=== PATIENT | female | born 1975 | race Caucasian/White ===

== ENCOUNTER → 2024-01-09 10:24 | Outpatient (REF) | payer OTHER, SELFPAY | LOC: RAD 10:24 | PROVIDERS: ATTENDING PHYSICIAN Nurse Practitioner Adult Health | DX: K59.04 Chronic idiopathic constipation (principal) | CPT/HCPCS: 74018 ==

== ENCOUNTER → 2024-04-02 06:14 | Day surgery (SDC) | payer OTHER, SELFPAY | LOC: GI 06:14 | PROVIDERS: ATTENDING PHYSICIAN Surgery | DX: Z12.11 Encounter for screening for malignant neoplasm of colon (principal) | CPT/HCPCS: G0121 ==

== ENCOUNTER 2024-05-12 17:55 | Emergency (ER) | payer OTHER, SELFPAY ==
[2024-05-12 17:57] VITALS: BP 127/94
--- NOTE | 2024-05-12 20:25 | ED.GENMED ---
History of Present Illness
General
Chief Complaint: Dizziness
Source: patient
Exam Limitations: none
Time Seen by Provider: 05/12/24 20:06
History of Present Illness
History of Present Illness:
See MDM
Past History
Past History
ED Past Medical History: None
ED Past Surgical History: None
Social History
Tobacco: Non-smoker
Phy Exam
Physical Exam
Physical Exam:
See MDM
Course
Orders/Labs/Results
Orders:
Orders
05/12/24 18:[address] [CT Head W/o Iv Contrast] Urgent
Comment:
Reason For Exam: dizziness
05/12/24 19:22
Test Result ONCE
05/12/24 20:19
Meclizine [Antivert] 25 mg PO NOW STA
05/12/24 20:26
Complete Blood Count/With Diff Urgent
Comprehensive Metabolic Panel Urgent
HCG, Serum Qualitative Screen Urgent
Abnormal Lab Results
05/12/24
20:26
Hct 36.9 L %
(37.0-47.0)
MCV 80.7 L fL
(81.0-99.0)
BUN 23 H mg/dl
(7-17)
05/12/24 20:26
05/12/24 20:26
Vital Signs
Initial and Last Documented VS:
Initial Vital Signs
Temp Pulse Resp BP Pulse Ox
98.2 F 89 18 127/94 97
05/12/24 17:57 05/12/24 17:57 05/12/24 17:57 05/12/24 17:57 05/12/24 17:57
Last Documented Vital Signs
Temp Pulse Resp BP Pulse Ox
98.2 F 78 18 116/86 97
05/12/24 17:57 05/12/24 20:39 05/12/24 17:57 05/12/24 20:39 05/12/24 20:39
MDM/Problems Addressed
Differential Diagnosis Includes:
HPI and MDM Narrative:
48-year-old female presenting with intermittent dizziness over the past several weeks or so. Patient saw her PCP and felt like the symptoms were dismissed. Given her prior history of breast cancer, she went to her oncologist who suggested ER
evaluation for brain imaging to rule out any sort of mass or metastatic disease. Patient states symptoms are intermittent and worse with certain head movements.
On exam, she is well-appearing nontoxic. We discussed the CT head is negative for any sort of mass or metastasis. She does have normal finger-nose bilaterally and a mild left lateral nystagmus that is easily fatigable. Positive Tory-Hallpike to
the left. Will obtain basic blood work but treat as likely benign paroxysmal positional vertigo and start meclizine
Physical exam
General: Well appearing and non-toxic
HEENT: protecting airway. TMs clear. Mild fatigable horizontal nystagmus to the left
Neck: supple
CV: No evidence of cyanosis
Resp: No accessory muscle use
Abd: Non-distended
Extremities: No deformities
Neuro: alert. Normal finger-nose bilaterally. Positive Tory-Hallpike to the left
Psych: Normal affect
Skin: Intact
Problems Addressed including Acute and Chronic Conditions affecting care:
1. Benign paroxysmal positional vertigo
Acuity: acute
Prognosis: stable
Details: CT head negative. Will start meclizine and reeval
Updates
Blood work without clinical significance. Patient feeling better after meclizine. We discussed Prakash maneuvers at home and possible vestibular therapy. We discussed outpatient MRI if symptoms persist. Since patient was feeling better, she did
mention that she was eager to leave to provide her dog with epileptic medicine. Patient was given verbal discharge information. She did not need to wait for written instructions. Patient ambulate without difficulty.
Differential Diagnosis (but not limited to): Brain metastasis, vertigo, BPPV
Testing considered: Brain MRI but discussed this is likely better suited in the outpatient setting if symptoms persist
Drug therapy (if applicable): OTC meds, please see d/c instruction regarding Rx drugs
Amount and/or Complexity of Data Reviewed
Clinical info obtained from: Patient
External data reviewed: N/A
Labs I independently reviewed (but not limited to): White blood cell count normal
Radiology: The CT scan was personally and independently reviewed. In addition, official CT report reviewed.
Pulse Ox: not hypoxic
EKG independently reviewed: N/A
Athletic Gear Custodian: N/A
Critical Care: N/A
Risk of Complication:
Social Determinants of health: Good social support
Discussed with other providers: N/A
Escalation of Care includes Admit/Obs: After being observed in the Emergency Department, pt stable for discharge.
Occasional wrong word or 'sound a like' substitutions may have occurred due to the inherent limitations of voice recognition software. Read the chart carefully and recognize, using context, where substitutions have occurred.
*Critical Care Note
Total Time (30-74mins, 75-104mins- exclusive of procedures): Not Applicable
ED Attending Note
-
Portions of this chart may have been created with voice recognition software.� Occasional wrong word or��sound alike� substitutions may have occurred due to the inherent limitations of voice recognition software.
Discharge Plan
Departure
Patient Disposition: Home (Routine Discharge)
Date of Disposition: 05/12/24
Time of Disposition: 21:39
Patient with high blood pressure during this ER visit?: No
Discharge Problem:
Benign paroxysmal positional vertigo
Instructions: Vertigo (a Type of Dizziness) (DC)
Prescriptions:
New
meclizine [Antivert] 25 mg Tablet,Chewable
25 mg PO BIDPRN PRN (Reason: nausea or vertigo) Qty: 15 0RF
No Action
multivitamin [Zqr-Qwmxhh-Oronp] 1 EACH tablet
1 ea PO DAILY
hydromorphone 2 MG tablet
2 mg PO Q4-6HPRN PRN (Reason: pain)
naproxen sodium [Aleve] 220 MG tablet
220 mg PO BID
diazepam 5 MG tablet
5 mg PO DAILYPRN PRN (Reason: spasms)
Paxlovid 300 mg (150 mg x 2)-100 mg tablets,dose pack
See Rx Instructions .ROUTE .COMPLEX Qty: 30 0RF
Rx Instructions:
take TWO 150 mg tablets of nirmatrelvir with ONE 100 mg tablet of ritonavir twice daily for 5 days
Referrals:
Tonja Pinzon CRNP [Family Provider] -
Interventions
Interventions:
*Risk Screen - Suicide Last Done: 05/12/24 17:57
*General Assessment Last Done: 05/12/24 17:57
*Neglect/Abuse Screening Last Done: 05/12/24 17:57
*ED COVID-19 Vaccine History Last Done: 05/12/24 17:57
Discharge Date and Time
Print Language: ALBANIAN
[2024-05-12] MEDS: ANTIVERT 25 MG PO (20:37)
[2024-05-12 20:39] VITALS: BP 116/86
[2024-05-12 20:42] LABS: % Basophils 0.3 % (0-2); % Eosinophils 2.2 % (0-6); % Immature Granulocytes 0.1 % (0-0.5); % Lymphocytes 38.2 % (20.5-51.1); % Monocytes 5.3 % (1.7-9.3); % Neutrophils 53.9 % (42.2-75.2); Absolute Eosinophils 0.2 10^3/uL (0-0.7); Absolute Lymphocytes 2.7 10^3/uL (1.2-3.4); Absolute Monocytes 0.4 10^3/uL (0.1-0.6); Absolute Neutrophils 3.8 10^3/uL (1.4-6.5); Hematocrit 36.9 % (37.0-47.0); Hemoglobin 13.1 g/dL (12.0-16.0); Mean Corp Hgb Conc. 35.5 g/dL (33.0-37.0); Mean Corpuscular Hgb 28.7 pg (27.0-31.0); Mean Corpuscular Volume 80.7 fL (81.0-99.0); Mean Platelet Volume 9.9 fL (7.4-10.4); Nucleated Red Blood Cells % 0 %; Platelet Count 293 10^3/uL (130-400); Red Blood Cell Count 4.57 10^6/uL (4.20-5.40); Red Cell Dist. Width 13.3 % (11.5-14.5)
[2024-05-12 20:58] LABS: HCG, Serum Qualitative Screen Negative
[2024-05-12 21:02] LABS: ALT (SGPT) 17 U/L (0-35); AST (SGOT) 27 U/L (14-36); Albumin 4.5 g/dl (3.5-5.0); Alkaline Phosphatase 48 U/L (38-126); Blood Urea Nitrogen 23 mg/dl (7-17); Calcium 10.1 mg/dl (8.4-10.2); Carbon Dioxide 27 mmol/L (22-30); Chloride 102 mmol/L (98-107); Glucose 81 mg/dl (70-99); Sodium 136 mmol/L (135-145); Total Bilirubin 0.4 mg/dl (0.2-1.3); Total Protein 6.9 g/dl (6.3-8.2); eGFR > 60.00
== END 2024-05-12 21:50 | disposition home or self-care (01) ==
LOC: EMR 17:55
PROVIDERS: Emergency Medicine; EMERGENCY PHYSICIAN Student in an Organized Health Care Education/Training Program; FAMILY PHYSICIAN Nurse Practitioner Adult Health
DX: H81.10 Benign paroxysmal vertigo, unspecified ear (principal); Z85.3 Personal history of malignant neoplasm of breast; Z88.1 Allergy status to other antibiotic agents
CPT/HCPCS: 99284; 70450; 80053; 84703; 85025

== ENCOUNTER 2024-11-17 14:41 | Emergency (ER) | payer OTHER, SELFPAY ==
[2024-11-17 15:06] VITALS: BP 106/77
[2024-11-17 15:40] LABS: % Basophils 0.4 % (0-2); % Eosinophils 2.5 % (0-6); % Immature Granulocytes 0.3 % (0-0.5); % Lymphocytes 34.4 % (20.5-51.1); % Monocytes 5.3 % (1.7-9.3); % Neutrophils 57.1 % (42.2-75.2); Absolute Eosinophils 0.2 10^3/uL (0-0.7); Absolute Lymphocytes 2.5 10^3/uL (1.2-3.4); Absolute Monocytes 0.4 10^3/uL (0.1-0.6); Absolute Neutrophils 4.1 10^3/uL (1.4-6.5); Hematocrit 40.4 % (37.0-47.0); Hemoglobin 13.8 g/dL (12.0-16.0); Mean Corp Hgb Conc. 34.2 g/dL (33.0-37.0); Mean Corpuscular Hgb 28.8 pg (27.0-31.0); Mean Corpuscular Volume 84.3 fL (81.0-99.0); Mean Platelet Volume 9.8 fL (7.4-10.4); Nucleated Red Blood Cells % 0 %; Platelet Count 317 10^3/uL (130-400); Red Blood Cell Count 4.79 10^6/uL (4.20-5.40); Red Cell Dist. Width 13.2 % (11.5-14.5); White Blood Cell Count 7.2 10^3/uL (4.8-10.8)
[2024-11-17 15:53] LABS: ALT (SGPT) 13 U/L (0-35); AST (SGOT) 19 U/L (14-36); Albumin 4.7 g/dl (3.5-5.0); Alkaline Phosphatase 56 U/L (38-126); Blood Urea Nitrogen 13 mg/dl (7-17); Calcium 9.7 mg/dl (8.4-10.2); Carbon Dioxide 23 mmol/L (22-30); Chloride 102 mmol/L (98-107); Glucose 87 mg/dl (70-99); Potassium 4.2 mmol/L (3.5-5.1); Sodium 135 mmol/L (135-145); Total Bilirubin 0.7 mg/dl (0.2-1.3); eGFR > 60.00
[2024-11-17 16:04] LABS: Troponin I < 0.012 ng/ml
--- NOTE | 2024-11-17 16:06 | ED.GENMED ---
History of Present Illness
General
Chief Complaint: Breathing Problem
Time Seen by Provider: 11/17/24 16:06
History of Present Illness
History of Present Illness:
TIME OF INITIAL ENCOUNTER:
HPI: The patient presents with shortness of breath. This is associated with some upper back pain in the middle. She does not necessarily have an exertional component. 2 nights ago, while with friends at [facility], she had abrupt onset lower
chest/upper abdominal tightness. She did not drink any alcohol this past weekend. She does not normally drink any alcohol. She has a history of breast cancer and no longer requires any treatment.
EXAM:
GENERAL: Well appearing in no distress
HEENT: Moist oral mucosa
CARDIOVASCULAR: No murmurs, normal heart rate, regular rhythm, No chest wall tenderness
PULMONARY: No respiratory distress, breath sounds are clear and equal
ABDOMEN: Soft with no peritoneal signs, no tenderness
BACK: Minimal near midline T-spine tenderness
NEUROLOGIC: Excellent strength all extremities, no coordination deficits
PSYCHIATRIC: Appropriate mental status, normal insight and judgement
EXTREMITIES: Nontender, no edema, moves all extremities equally
SKIN: No rash, no lesions
NUMBER AND COMPLEXITY OF PROBLEMS ADDRESSED AT THE ENCOUNTER
� Chronic conditions affecting care: Breast cancer
� Acute Exacerbation and/or Progression of Chronic Illness:
� Differential Diagnosis includes: Anxiety, no evidence for reactive airway disease, recurrence of malignancy, PE, ACS
AMOUNT AND/OR COMPLEXITY OF DATA TO BE REVIEWED AND ANALYZED
� I performed an independent evaluation of and my interpretation is:
EKG: Sinus 80, normal axis, no acute ST abnormality
CT: CT chest shows no PE, atelectasis noted
X-rays:
Laboratory Studies: CBC and chemistries unremarkable, troponin negative, TSH normal
Other:
� Review of other/old records: The patient was seen here last May related to vertigo
� Clinical information was obtained by an independent historian: None needed
� Prescriptions/Medications Considered but not given:
� Further testing considered but not performed:
RISK OF COMPLICATIONS AND/OR MORBIDITY OR MORTALITY OF PATIENT MANAGEMENT
� Social determinants of health affecting care: Lives at home
� Discussion with other providers:
� Escalation of care including admission/observation vs risk of discharge considered: The patient has a history of breast cancer no longer requiring any treatment. However she has otherwise unexplained shortness of breath. Will
obtain CT imaging for further evaluation.
ANY OTHER UPDATES:
8:30 PM: Patient has an unremarkable ED workup. Appears comfortable. Possible anxiety component. We talked about the bilateral atelectasis and gave an incentive spirometer however I doubt that this is the cause of her symptoms..
Past History
Past History
ED Past Medical History: None
ED Past Surgical History: None
Social History
Tobacco: Non-smoker
Phy Exam
Physical Exam
Physical Exam:
See HPI
Scores
Heart Failure Risk
Heart Failure Risk Score: Not Applicable
Course
Orders/Labs/Results
Orders:
Orders
11/17/24 14:42
EKG [Electrocardiogram (*1)] Urgent
Reason for Study: Palpitations
EKG- Treatment ONCE
11/17/24 15:26
Complete Blood Count/With Diff Urgent
Comprehensive Metabolic Panel Urgent
TSH Reflex To Free T4 Urgent
Comment: ADD ON
Troponin I Urgent
11/17/24 16:07
Add On- LAB Urgent
Tests Added?: tsh reflex fT4
11/17/24 16:20
CT Chest PE Study Urgent
Comment:
Reason For Exam: sob, h/o breast CA, eval for PE, clear lungs
11/17/24 15:26
11/17/24 15:26
Vital Signs
Initial and Last Documented VS:
Initial Vital Signs
Temp Pulse Resp BP Pulse Ox
36.7 C 83 16 106/77 98
11/17/24 15:06 11/17/24 15:06 11/17/24 15:06 11/17/24 15:06 11/17/24 15:06
Last Documented Vital Signs
Temp Pulse Resp BP Pulse Ox
36.7 C 78 16 100/74 99
11/17/24 15:06 11/17/24 20:32 11/17/24 15:06 11/17/24 20:32 11/17/24 20:32
*Critical Care Note
Total Time (30-74mins, 75-104mins- exclusive of procedures): Not Applicable
ED Attending Note
-
Portions of this chart may have been created with voice recognition software.� Occasional wrong word or��sound alike� substitutions may have occurred due to the inherent limitations of voice recognition software.
Discharge Plan
Departure
Patient Disposition: Home (Routine Discharge)
Date of Disposition: 11/17/24
Time of Disposition: 20:14
Patient with high blood pressure during this ER visit?: Yes
Discharge Problem:
Shortness of breath
Instructions: Shortness of Breath (Dyspnea) (DC)
Prescriptions:
No Action
multivitamin [Yja-Hyapfw-Eeunu] 1 EACH tablet
1 ea PO DAILY
hydromorphone 2 MG tablet
2 mg PO Q4-6HPRN PRN (Reason: pain)
naproxen sodium [Aleve] 220 MG tablet
220 mg PO BID
diazepam 5 MG tablet
5 mg PO DAILYPRN PRN (Reason: spasms)
Paxlovid 300 mg (150 mg x 2)-100 mg tablets,dose pack
See Rx Instructions .ROUTE .COMPLEX Qty: 30 0RF
Rx Instructions:
take TWO 150 mg tablets of nirmatrelvir with ONE 100 mg tablet of ritonavir twice daily for 5 days
meclizine [Antivert] 25 mg Tablet,Chewable
25 mg PO BIDPRN PRN (Reason: nausea or vertigo) Qty: 15 0RF
Referrals:
Pascale Roldan MD [Family Provider] -
Activity Restrictions/Additional Instructions:
The cause of your symptoms is unclear. Basic blood work is normal including your white blood cell count, hemoglobin level, electrolytes, cardiac blood work. The CAT scan shows no sign of blood clot. It does suggest some atelectasis at the
bases�you could use incentive spirometer multiple times a day to help exercise the lungs. However I do not think this is necessarily the cause of your symptoms. Hemangioma in the liver is again seen. Return here if worse or other concerns.
Interventions
Interventions:
*Risk Screen - Suicide Last Done: 11/17/24 16:43
*General Assessment Last Done: 11/17/24 16:43
*Neglect/Abuse Screening Last Done: 11/17/24 16:43
ED- Fall Risk Assessment Last Done: 11/17/24 20:32
*ED COVID-19 Vaccine History Last Done: 11/17/24 16:43
*Nursing Disposition Last Done: 11/17/24 20:32
ED- Cardiac Assessment Last Done: 11/17/24 17:46
ED- Pulmonary Assessment Last Done: 11/17/24 17:46
Discharge Date and Time
Discharge Date/Time: 11/17/24 20:33
Print Language: SWAZI
[2024-11-17 16:42] VITALS: BP 109/65
[2024-11-17 20:32] VITALS: BP 100/74
== END 2024-11-17 20:33 | disposition home or self-care (01) ==
LOC: EMR 14:41
PROVIDERS: Student in an Organized Health Care Education/Training Program; EMERGENCY PHYSICIAN Emergency Medicine; FAMILY PHYSICIAN Internal Medicine
DX: R06.02 Shortness of breath (principal); M54.9 Dorsalgia, unspecified; Z85.3 Personal history of malignant neoplasm of breast
CPT/HCPCS: 99284; 71275; 80053; 84443; 84484; 85025; 93005; Q9967

== ENCOUNTER 2025-06-01 14:04 | Outpatient (RCR) | payer OTHER, SELFPAY | END 2025-06-01 23:59 | disposition home or self-care (01) | LOC: RPT 14:04 | PROVIDERS: ATTENDING PHYSICIAN Internal Medicine Cardiovascular Disease; FAMILY PHYSICIAN Internal Medicine | DX: R60.0 Localized edema (principal); I89.0 Lymphedema, not elsewhere classified; N39.41 Urge incontinence; L90.5 Scar conditions and fibrosis of skin; Z73.6 Limitation of activities due to disability; M62.81 Muscle weakness (generalized) | CPT/HCPCS: 97110; 97112; 97140; 97163; 97530 ==

== ENCOUNTER 2025-06-10 14:15 | Outpatient (RCR) | payer OTHER, SELFPAY | END 2025-06-10 23:59 | disposition home or self-care (01) | LOC: RPT 14:15 | PROVIDERS: ATTENDING PHYSICIAN Internal Medicine Cardiovascular Disease; FAMILY PHYSICIAN Internal Medicine | DX: R60.0 Localized edema (principal); I89.0 Lymphedema, not elsewhere classified; N39.41 Urge incontinence; L90.5 Scar conditions and fibrosis of skin; Z73.6 Limitation of activities due to disability; M62.81 Muscle weakness (generalized) | CPT/HCPCS: 97110; 97112; 97140; 97530 ==

== ENCOUNTER 2025-07-06 15:32 | Outpatient (RCR) | payer OTHER, SELFPAY | END 2025-07-06 23:59 | disposition home or self-care (01) | LOC: RPT 15:32 | PROVIDERS: ATTENDING PHYSICIAN Orthopaedic Surgery; FAMILY PHYSICIAN Internal Medicine | DX: M22.2X1 Patellofemoral disorders, right knee (principal); M22.2X2 Patellofemoral disorders, left knee; Z73.6 Limitation of activities due to disability; M62.81 Muscle weakness (generalized); M54.9 Dorsalgia, unspecified; R26.89 Other abnormalities of gait and mobility | CPT/HCPCS: 97110; 97112; 97161 ==

== ENCOUNTER → 2025-07-13 13:16 | Outpatient (REF) | payer OTHER, SELFPAY | LOC: RAD 13:16 | PROVIDERS: ATTENDING PHYSICIAN Internal Medicine | DX: R10.31 Right lower quadrant pain (principal) | CPT/HCPCS: 74177; Q9967 ==

== ENCOUNTER 2025-07-22 09:01 | Outpatient (RCR) | payer OTHER, SELFPAY | END 2025-07-22 23:59 | disposition home or self-care (01) | LOC: RPT 09:01 | PROVIDERS: ATTENDING PHYSICIAN Orthopaedic Surgery; FAMILY PHYSICIAN Internal Medicine | DX: M22.2X1 Patellofemoral disorders, right knee (principal); M22.2X2 Patellofemoral disorders, left knee; Z73.6 Limitation of activities due to disability; M62.81 Muscle weakness (generalized); M54.9 Dorsalgia, unspecified; R26.89 Other abnormalities of gait and mobility | CPT/HCPCS: 97110; 97112; 97530 ==

== ENCOUNTER 2025-08-06 15:04 | Outpatient (RCR) | payer OTHER, SELFPAY | END 2025-08-06 23:59 | disposition home or self-care (01) | LOC: RPT 15:04 | PROVIDERS: ATTENDING PHYSICIAN Internal Medicine Cardiovascular Disease; FAMILY PHYSICIAN Internal Medicine | DX: R60.0 Localized edema (principal); I89.0 Lymphedema, not elsewhere classified; N39.41 Urge incontinence; L90.5 Scar conditions and fibrosis of skin; Z73.6 Limitation of activities due to disability; M62.81 Muscle weakness (generalized) | CPT/HCPCS: 97110; 97112; 97140; 97530 ==

== ENCOUNTER 2025-09-24 12:32 | Outpatient (RCR) | payer OTHER, SELFPAY | END 2025-09-24 14:23 | disposition home or self-care (01) | LOC: RPT 12:32 | PROVIDERS: ATTENDING PHYSICIAN Internal Medicine Cardiovascular Disease; FAMILY PHYSICIAN Internal Medicine | DX: R60.0 Localized edema (principal); I89.0 Lymphedema, not elsewhere classified; N39.41 Urge incontinence; L90.5 Scar conditions and fibrosis of skin; Z73.6 Limitation of activities due to disability; M62.81 Muscle weakness (generalized); K59.09 Other constipation | CPT/HCPCS: 97112; 97530 ==